=== PATIENT | female | born 1940 | race Caucasian/White ===

== ENCOUNTER 2019-06-09 11:27 | Emergency (ER) | payer MEDICARE, SELFPAY ==
--- NOTE | ~2019-06-09 | XR_ITS ---
EXAMINATION: XR foot RT min 3V DATE: 06/09/2019 12:08 INDICATION: Right foot pain and bruising TECHNIQUE: Dorsoplantar, lateral, and 2 oblique views of the right foot were obtained. COMPARISON: None. FINDINGS: There is dorsal soft tissue swelling the foot overlying the metatarsals. No fracture, dislo cation, or subluxation is identified. Bone alignment is normal. 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 A plantar calcaneal enthesophyte is noted. IMPRESSION: 1. Dorsal soft tissue swelling of the foot overlying the metatarsals without underlying osseous abnor mality. Reviewed, dictated and finalized at location A. UCTION COOK IMPRESSION: 1. Dorsal soft tissue swelling of the foot overlying the metatarsals without un derlying osseous abnormality.
[2019-06-09 11:33] VITALS: BP 163/73; PULSE 69; RESP 18; TEMP 36.4; O2SAT 100
--- NOTE | 2019-06-09 12:55 | ED.LOWEXIN ---
HPI - Extremity Injury (Lower) General Chief Complaint: Extremity Injury, Lower Stated Complaint: right foot injury Time Seen by Provider: 06/09/19 11:30 Source: patient Mode of arrival: ambulatory Limitations: no limitations History of Present Illness HPI Narrative: Patient presents with chief complaint of large swelling to the dorsal aspect of her right foot that she sustained after dropping a tube of butter onto it. Patient states the only blood thinner that she takes is a baby aspirin daily. Patient denies any loss of range of motion to her extremity. Patient denies prior fractures or injuries to the area. Patient denies any other injuries or concerns. Related Data Home Medications Medication Instructions Recorded Confirmed alendronate [Fosamax] 70 mg PO WEEKLY 06/09/19 aspirin 81 mg PO DAILY 06/09/19 atorvastatin 06/09/19 losartan 06/09/19 metoprolol tartrate 06/09/19 Allergies Allergy/AdvReac Type Severity Reaction Status Date / Time cyclobenzaprine Allergy Unknown Unknown Verified 06/09/19 11:43 Penicillins Allergy Unknown Unknown Verified 06/09/19 11:43 Review of Systems Review of Systems: Narrative: CONSTITUTIONAL: Denies fever, chills, or sweats. EYES: Denies visual changes, redness, or discharge. ENT: Denies rhinorrhea, congestion, sore throat, or otalgia. CARDIOVASCULAR: Denies chest pain, palpitations, or edema. RESPIRATORY: Denies cough or dyspnea. GASTROINTESTINAL: Denies abdominal pain, nausea, vomiting, or diarrhea. GENITOURINARY: Denies dysuria or hematuria. SKIN: Denies rash or itching. MUSCULOSKELETAL: Reports foot swelling denies back pain, joint pain, or myalgia. NEUROLOGIC: Denies headache, numbness, dizziness, or weakness. PSYCHIATRIC: Denies anxiety or depression. [facility] Past Medical History Medical History (Updated 06/09/19 @ 13:32 by Alli Orellana PA-C) Hypertension Osteoporosis Family History Family History (Updated 12/07/13 @ 07:13 by DOCTOR UNKNOWN) Mother Cerebrovascular accident Family history of heart disease in male family member before age 55 Father Family history of primary malignant neoplasm of liver Social History Social History Smoking status: Never smoker Alcohol intake: current Exam Narrative: Exam Narrative: GENERAL: Well-appearing, well-nourished, and in no acute distress. HEAD: Normocephalic, atraumatic. EYES: PERRLA and EOMI. ENT: Nares clear, no rhinorrhea or epistaxis. External ears nose and mouth without deformity. NECK: Supple. No adenopathy or masses. No carotid bruits or JVD CHEST: Clear to auscultation. No respiratory distress. No wheezes rales or rhonchi HEART: Regular rate and rhythm. No murmur heard. Normal peripheral pulses. EXTREMITIES: Normal range of motion. Large area of edema over dorsal aspect of right foot. Tender to palpation. SKIN: Warm, dry, no rash. NEURO: No focal deficits. Alert and oriented x3. PSYCH: Normal mood and affect. Course Vital Signs Vital signs: Vital Signs Temperature 97.5 F L 06/09/19 11:33 Pulse Rate 69 06/09/19 11:33 Respiratory Rate 18 06/09/19 11:33 Blood Pressure 163/73 H 06/09/19 11:33 Pulse Oximetry 100 06/09/19 11:33 Temperature 97.5 F L 06/09/19 11:33 Pulse Rate 69 06/09/19 11:33 Respiratory Rate 18 06/09/19 11:33 Blood Pressure 163/73 H 06/09/19 11:33 Pulse Oximetry 100 06/09/19 11:33 MDM - Extremity Injury (Lower) MDM Narrative Medical decision making narrative: Discussed with patient there are no signs of underlying fracture. Discussed treatment of contusion and follow-up with her primary care for reevaluation if discomfort persists and improvement is not present in 7 to 10 days. Patient is agreeable to Butch wrap. Instructed patient to elevate and apply cool compress. Patient verbalized understanding agreement denies any other questions or concerns. Patient states she is ready for discharge at this time. Differential Diagnosis Differ
== END 2019-06-09 13:05 | disposition home or self-care (01) ==
PROVIDERS: Emergency Provider Family Medicine
DX: S90.31XA Contusion of right foot, initial encounter (principal); I10 Essential (primary) hypertension; M81.0 Age-related osteoporosis without current pathological fracture; Z79.82 Long term (current) use of aspirin; W20.8XXA Other cause of strike by thrown, projected or falling object, initial encounter
CPT/HCPCS: 73630; 99283

== ENCOUNTER 2020-08-25 19:47 | Emergency (ER) | payer MEDICARE, SELFPAY ==
[2020-08-25 19:50] VITALS: BP 166/98; PULSE 71; RESP 18; TEMP 36.5; O2SAT 100
--- NOTE | 2020-08-25 21:00 | ED.SKABFB ---
HPI - Skin/Abscess/Foreign Bdy General Chief complaint: Skin/Abscess/Foreign Body Stated complaint: wound to face Time Seen by Provider: 08/25/20 20:46 Source: patient Mode of arrival: ambulatory Limitations: no limitations History of Present Illness HPI narrative: This is a 80 year old female that presents to the ER for left sided facial redness present x 3 days. Does report some drainage from the area. Denies fever. Related Data Home Medications Medication Instructions Recorded Confirmed alendronate [Fosamax] 70 mg PO WEEKLY 06/09/19 aspirin 81 mg PO DAILY 06/09/19 atorvastatin 06/09/19 losartan 06/09/19 metoprolol tartrate 06/09/19 Allergies Allergy/AdvReac Type Severity Reaction Status Date / Time cyclobenzaprine Allergy Unknown Unknown Verified 08/25/20 21:07 Penicillins Allergy Unknown Unknown Verified 08/25/20 21:07 Review of Systems Review of Systems: Narrative: CONSTITUTIONAL: Denies fever SKIN: Reports rash All systems reviewed & are unremarkable except as noted in HPI and below PMFSH Past Medical History Medical History (Updated 08/25/20 @ 22:10 by Leida Whitney PA-C) Hypertension Osteoporosis Family History Family History (Updated 12/07/13 @ 07:13 by DOCTOR UNKNOWN) Mother Cerebrovascular accident Family history of heart disease in male family member before age 55 Father Family history of primary malignant neoplasm of liver Social History Social History Smoking status: Never smoker Alcohol intake: current Exam Narrative: Exam Narrative: GENERAL: Well-appearing, well-nourished, and in no acute distress. HEAD: Normocephalic, atraumatic. Left side of the face temporal region with 5cm area of erythema and edema. No central fluctuance to suggest abscess. EYES: EOMI. EXTREMITIES: Normal range of motion. No edema. SKIN: Warm, dry, no rash. NEURO: No focal deficits. Alert and oriented x3. PSYCH: Normal mood and affect Course Vital Signs Vital signs: Vital Signs Temperature 97.7 F 08/25/20 19:50 Pulse Rate 71 08/25/20 19:50 Respiratory Rate 18 08/25/20 19:50 Blood Pressure 166/98 H 08/25/20 19:50 Pulse Oximetry 100 08/25/20 19:50 Temperature 97.7 F 08/25/20 19:50 Pulse Rate 71 08/25/20 19:50 Respiratory Rate 18 08/25/20 19:50 Blood Pressure 166/98 H 08/25/20 19:50 Pulse Oximetry 100 08/25/20 19:50 MDM - Skin/Abscess/Foreign Bdy MDM Narrative Medical decision making narrative: Patient presents to the ER for redness present to the left side of the face temporal region noted over the last 3 days. She is afebrile and nontoxic appearing. CBC is without leukocytosis. CRP is not elevated. Patient is noted to have area of cellulitis. No fluctuance to suggest an abscess. She will be started on oral antibiotics and was instructed to follow-up with her primary care doctor. She was given warnings to return to the ER Lab Data Attestation: I reviewed the patient's lab results. Result diagrams: 08/25/20 21:23 Labs: Lab Results 08/25/20 08/25/20 Range/Units 21:23 21:23 WBC 8.3 (4.5-10.0) K/mm3 RBC 4.40 (4.2-5.4) M/mm3 Hgb 13.2 (12.0-15.0) g/dL Hct 40.9 (37.0-47.0) % MCV 93.0 (80-100) fl MCH 30.0 (26-34) pg MCHC 32.3 (32-36) g/dl RDW 12.7 (11.5-14.5) % Plt Count 198 (150-375) k/mm3 MPV 9.8 (7.4-10.4) fl Immature Gran % (Auto) 0.2 (0-0.5) % Neut % (Auto) 66.2 (45.5-73.1) % Lymph % (Auto) 24.3 (18.3-44.2) % [place] % (Auto) 6.5 (2.6-8.5) % Eos % (Auto) 2.2 (0-4.4) % Baso % (Auto) 0.6 (0.2-1.2) % Lymph # (Auto) 2.02 (0.9-3.2) K/mm3 [place] # (Auto) 0.5 (0.1-0.6) K/mm3 Eos # (Auto) 0.2 (0-0.3) K/mm3 Baso # (Auto) 0.1 (0.0-0.1) K/mm3 Abs Immat Gran (auto) 0.02 (0.00-0.031) K/mm3 Absolute Neuts (auto) 5.5 (1.3-6.7) K/mm3 Absolute Nucleated RBC 0.0 (0.0-0.012) K/mm3 Nucleated RBC % 0.0 (0.0-0.2) % ESR Pending C-Reactive
[2020-08-25 21:32] LABS: Basophils Absolute Auto 0.1 K/mm3 (0.0-0.1); Basophils Percent Auto 0.6 % (0.2-1.2); Eosinophils Absolute Auto 0.2 K/mm3 (0-0.3); Eosinophils Percent Auto 2.2 % (0-4.4); Hematocrit 40.9 % (37.0-47.0); Hemoglobin 13.2 g/dL (12.0-15.0); Immature Granulocyte Absolute 0.02 K/mm3 (0.00-0.031); Immature Granulocyte Percent A 0.2 % (0-0.5); Lymphocytes Absolute Auto 2.02 K/mm3 (0.9-3.2); Lymphocytes Percent Auto 24.3 % (18.3-44.2); Mean Corpuscular HGB Conc 32.3 g/dl (32-36); Mean Platelet Volume 9.8 fl (7.4-10.4); Monocytes Absolute Auto 0.5 K/mm3 (0.1-0.6); Monocytes Percent Auto 6.5 % (2.6-8.5); Neutrophils Absolute Auto 5.5 K/mm3 (1.3-6.7); Neutrophils Percent Auto 66.2 % (45.5-73.1); Platelet Count Result 198 k/mm3 (150-375); Red Cell Distribution Width 12.7 % (11.5-14.5); White Blood Count 8.3 K/mm3 (4.5-10.0)
[2020-08-25 21:47] LABS: CRP 0.9 mg/dL (<1.0)
[2020-08-25 22:14] LABS: Erythrocyte Sedimentation Rate 24 mm/hr (0-20)
[2020-08-25] MEDS: CLINDAMYCIN HCL 150 MG CAP 300 MG PO (22:38)
== END 2020-08-25 22:40 | disposition home or self-care (01) ==
PROVIDERS: Physician Assistant; Emergency Provider Emergency Medicine; PCP Internal Medicine
DX: L03.211 Cellulitis of face (principal); I10 Essential (primary) hypertension; M81.0 Age-related osteoporosis without current pathological fracture; Z79.82 Long term (current) use of aspirin
CPT/HCPCS: 36415; 85025; 85652; 86140; 87070; 87147; 87186; 87205; 99283; A9270

== ENCOUNTER 2020-08-26 21:31 | Emergency (ER) | payer MEDICARE, SELFPAY ==
[2020-08-26 21:35] VITALS: BP 172/75; PULSE 73; RESP 16; TEMP 36
[2020-08-26 22:22] VITALS: TEMP 36.8
[2020-08-26 23:00] LABS: Basophils Percent Auto 0.4 % (0.2-1.2); Eosinophils Absolute Auto 0.2 K/mm3 (0-0.3); Eosinophils Percent Auto 1.5 % (0-4.4); Hematocrit 40.9 % (37.0-47.0); Hemoglobin 13.4 g/dL (12.0-15.0); Immature Granulocyte Absolute 0.03 K/mm3 (0.00-0.031); Immature Granulocyte Percent A 0.3 % (0-0.5); Lymphocytes Absolute Auto 1.99 K/mm3 (0.9-3.2); Mean Corpuscular HGB Conc 32.8 g/dl (32-36); Mean Corpuscular Hemoglobin 30.3 pg (26-34); Mean Corpuscular Volume 92.5 fl (80-100); Mean Platelet Volume 10.3 fl (7.4-10.4); Monocytes Absolute Auto 0.6 K/mm3 (0.1-0.6); Monocytes Percent Auto 5.8 % (2.6-8.5); Neutrophils Absolute Auto 7.6 K/mm3 (1.3-6.7); Platelet Count Result 209 k/mm3 (150-375); Red Blood Count 4.42 M/mm3 (4.2-5.4); Red Cell Distribution Width 12.7 % (11.5-14.5); White Blood Count 10.5 K/mm3 (4.5-10.0)
[2020-08-26 23:17] LABS: Lactic Acid Reflex 0.9 mmol/L (0.7-2.1)
[2020-08-26 23:27] LABS: Alanine Aminotransferase 20 U/L (4-35); Albumin Level 4.3 g/dL (3.5-5.1); Alkaline Phosphatase 82 U/L (38-126); Anion Gap 6 mmol/L (8-16); Aspartate Amino Transferase 27 U/L (14-36); Bilirubin,Total 0.6 mg/dL (0.2-1.3); Blood Urea Nitrogen 19 mg/dL (7-17); Calcium 9.4 mg/dL (8.4-10.2); Carbon Dioxide 25 mmol/L (22-30); Chloride 106 mmol/L (98-107); Estimated CRCL calculation 34 ml/min; Estimated Glomerular Filt Rate > 60; Glucose 93 mg/dL (65-105); Potassium 4.4 mmol/L (3.4-5.0); Sodium 137 mmol/L (137-145)
[2020-08-27 00:08] VITALS: BP 146/86; PULSE 74; RESP 18; O2SAT 99
--- NOTE | 2020-08-27 01:17 | ED.GENADULT ---
HPI - General Adult General Chief complaint: Fever Stated complaint: fever Time Seen by Provider: 08/26/20 22:16 History of Present Illness HPI narrative: Patient 80-year-old female presents emergency department chief complaint of cellulitis to left side of face. Patient was seen in the emergency department the last 24 hours started on clindamycin patient reports that she had noticed that her temperature was 99.2 at home and was concerned that she had a fever. The patient states that the area has not decreased in size yet and the patient states she was concerned that she was getting sicker. The patient denies chills denies body aches. The patient denies fluctuant mass to the area. Related Data Home Medications Medication Instructions Recorded Confirmed alendronate [Fosamax] 70 mg PO WEEKLY 06/09/19 aspirin 81 mg PO DAILY 06/09/19 atorvastatin 06/09/19 losartan 06/09/19 metoprolol tartrate 06/09/19 amlodipine 08/26/20 estradiol VAGINAL 08/26/20 08/26/20 Allergies Allergy/AdvReac Type Severity Reaction Status Date / Time cyclobenzaprine Allergy Unknown Unknown Verified 08/25/20 21:07 Penicillins Allergy Unknown Unknown Verified 08/25/20 21:07 Review of Systems Review of Systems: Narrative: A 10 system review of systems was completed on the patient and is negative except for what is stated in the HPI. Nursing and ancillary documentation was reviewed. [facility] Past Medical History Medical History Hypertension Osteoporosis Family History Family History Mother Cerebrovascular accident Family history of heart disease in male family member before age 55 Father Family history of primary malignant neoplasm of liver Social History Social History Smoking status: Never smoker Alcohol intake: current Exam Narrative: Exam Narrative: GENERAL: Well-appearing, well-nourished, and in no acute distress. HEAD: Normocephalic, atraumatic. EYES: PERRLA and EOMI. ENT: Nares clear, no rhinorrhea or epistaxis. Mucous membranes moist. NECK: Supple. CHEST: Clear to auscultation. No respiratory distress. HEART: Regular rate and rhythm. No murmur heard. Normal peripheral pulses. ABDOMEN: Soft, nontender, nondistended, normal active bowel sounds. EXTREMITIES: Normal range of motion. No edema. SKIN: Warm, dry, there is erythema present in the left face at the preauricular area on the left side. NEURO: No focal deficits. Alert and oriented x3. PSYCH: Normal mood and affect. Course Course Emergency Course: The patient is afebrile in the emergency department currently. White blood cell count is not significantly elevated the patient is only been on antibiotics for approximately 24 hours this time it was felt the patient could continue the antibiotics and follow-up in a short-term fashion with her primary care physician for close follow-up. Vital Signs Vital signs: Vital Signs Temperature 36.0 C L 08/26/20 21:35 Pulse Rate 73 08/26/20 21:35 Respiratory Rate 16 08/26/20 21:35 Blood Pressure 172/75 H 08/26/20 21:35 Temperature 36.8 C 08/26/20 22:22 Pulse Rate 74 08/27/20 00:08 Respiratory Rate 18 08/27/20 00:08 Blood Pressure 146/86 H 08/27/20 00:08 Pulse Oximetry 99 08/27/20 00:08 Medical Decision Making Vital Signs Vital Signs: Vital Signs Temperature 36.0 C L 08/26/20 21:35 Pulse Rate 73 08/26/20 21:35 Respiratory Rate 16 08/26/20 21:35 Blood Pressure 172/75 H 08/26/20 21:35 Temperature 36.8 C 08/26/20 22:22 Pulse Rate 74 08/27/20 00:08 Respiratory Rate 18 08/27/20 00:08 Blood Pressure 146/86 H 08/27/20 00:08 Pulse Oximetry 99 08/27/20 00:08 Lab Data Result diagrams: 08/26/20 22:46 08/26/20 22:46 Labs: Lab Results
[2020-08-27 01:54] VITALS: BP 144/82; PULSE 77; RESP 18; O2SAT 100
== END 2020-08-27 02:42 | disposition home or self-care (01) ==
PROVIDERS: Emergency Provider Emergency Medicine; PCP Internal Medicine
DX: L03.211 Cellulitis of face (principal); I10 Essential (primary) hypertension; M81.0 Age-related osteoporosis without current pathological fracture
CPT/HCPCS: 36415; 80053; 83605; 85025; 99283

== ENCOUNTER 2024-06-19 18:07 | Emergency (ER) | payer MEDICARE, SELFPAY ==
--- NOTE | ~2024-06-19 | XR_ITS ---
EXAM: XR hand RT min 3V DATE: 06/19/2024 18:43 HISTORY: Hit hand today. Large hematoma on dorsal surface. rt hand . COMPARISON: None available. FINDINGS: Decreased mineralization. No fracture or dislocation. No lytic or blastic lesion. Scattere d arthritic changes typical of osteoarthritis. No erosion or periosteal change. Marked dorsal soft ti ssue swelling, without subcutaneous gas or radiopaque foreign body. Chronic appearing decreased soft tissue over the tip of the third digit. IMPRESSION: No acute osseous finding in the right hand. Dorsal soft tissue swelling without subcutane ous gas or radiopaque foreign body. Reviewed, dictated and finalized at location K. IMPRESSION: No acute osseous finding in the right hand. Dorsal soft tissue swel ling without subcutaneous gas or radiopaque foreign body.
[2024-06-19 18:27] VITALS: BP 179/94; PULSE 63; RESP 18; TEMP 36.7; O2SAT 100
--- NOTE | 2024-06-19 18:30 | ED_ITS ---
HPI - Extremity Injury (Upper) General Chief Complaint: Extremity Injury, Upper Stated Complaint: Rt hand injury Source: patient Mode of arrival: ambulatory Limitations: no limitations History of Present Illness HPI narrative: 84-year-old female presented for complaint of right hand pain and bruise sustained after injury today. Patient states she struck the right hand on a file cabinet and the bruising caused swelling. Endorses some pain with range of motion. She denies deformity, numbness, tingling or weakness to the fingers. States she applied a wrap to the hand which reduce the swelling but then she re moved the wrap and the swelling returned. Related Data Home Medications ?Medication ?Instructions ?Recorded ?Confirmed ?Last Taken ?Type aspirin 81 mg chewable tablet 81 mg PO DAILY 06/09/19 06/19/24 Unknown History atorvastatin 06/09/19 Unknown History carvedilol 12.5 mg tablet 12.5 mg PO Q12H 06/19/24 06/19/24 Unknown History olmesartan 20 mg tablet 20 mg PO DAILY 06/19/24 06/19/24 Unknown History Allergies Allergy/AdvReac Type Severity Reaction Status Date / Time cyclobenzaprine Allergy Unknown Unknown Verified 06/19/24 18:33 Penicillins Allergy Unknown Unknown Verified 06/19/24 18:33 Review of Systems Review of Systems: Per HPI All systems reviewed & are unremarkable except as noted in HPI and below PMFSH Past Medical History Medical History Hypertension Osteoporosis Family History Family History Mother Cerebrovascular accident Family history of heart disease in male family member before age 55 Father Family history of primary malignant neoplasm of liver Social History Social History Smoking status: Never smoker Alcohol intake: current Comments At time of signature, I have reviewed and agree with nursing past medical, surgical, social and family history unless otherwise noted. Please see nursing chart for further information. There is no relevant family history pertinent to the presenting complaint Exam Narrative: GENERAL: Well-appearing CHEST: Speaks in full sentences. No respiratory distress. HEART: Regular rate and rhythm. Normal and equal peripheral pulses. EXTREMITIES: right dorsal hand with large raised hematoma, bruising extends to the 3rd proximal phalanx with swelling to the 3rd digit. hand has normal strength and sensation, normal range of motion with flexion/extension, endorses hand pain with flexion. Tender with palpation over the 3rd metacarpal. No open wounds, or obvious deformity; alignment normal, pulse palpable and equal bilaterally, skin warm, dry, pink. Capillary refill less than 3 seconds. SKIN: Warm, dry, no rash. NEURO: Alert and oriented x3. PSYCH: Normal mood and affect Course Course Emergency Course: Patient is aware of diagnosis, understands and agrees to treatment plan. Anticipatory guidance given. Patient agrees to follow-up as directed and is aw are of reasons to seek care at the emergency department. Portions of this record may have been created with voice recognition software Level of Care: Express Care Visit Vital Signs Vital signs: Vital Signs Temperature 98.0 F 06/19/24 18:27 Pulse Rate 63 06/19/24 18:27 Respiratory Rate 18 06/19/24 18:27 Blood Pressure 179/94 H 06/19/24 18:27 Pulse Oximetry 100 06/19/24 18:27 Oxygen Delivery Room Air 06/19/24 18:27 Temperature 98.0 F 06/19/24 18:27 Pulse Rate 63 06/19/24 18:27 Respiratory Rate 18 06/19/24 18:27 Blood Pressure 179/94 H 06/19/24 18:27 Pulse Oximetry 100 06/19/24 18:27 Oxygen Delivery Room Air 06/19/24 18:27 Reviewed MDM - Extremity Injury (Upper) MDM Narrative Medical decision making narrative: Discussed physical exam findings and x-ray. Butch wrap applied to the hand.. Advised supportive measures and signs/symptoms to go to the ER. Pt is appropriate for outpt treatment and f/u. Differential Diagnosis Differential diagnosis: Likely fracture of hand and other (Contusion, abrasion, sprain) Imaging Data Radiologist's impression: Patient: Kristen Jaramillo : 1940 MR#: [id number] Age: 84 Acct:[id number] Loc: [id number] ADM Date: 06/19/24Attending Dr: Ordering Physician: Nidia Todd APRN Date of Service: 06/19/24 Procedure(s): XR hand RT min 3V Accession Number(s): [id number] cc: Nidia Todd APRN; UNKNOWN,DOCTOR~ EXAM: XR hand RT min 3V DATE: 06/19/2024 18:43 HISTORY: Hit hand today. Large hematoma on dorsal surface. rt hand . COMPARISON: None available. FINDINGS: Decreased mineralization. No fracture or dislocation. No lytic or blastic lesion. Scattered arthritic changes typical of osteoarthritis. No erosion or periosteal change. Marked dorsal soft tissue swelling, without subcutaneous gas or radiopaque foreign body. Chronic appearing decreased soft tissue over the tip of the third digit. IMPRESSION: No acute osseous finding in the right hand. Dorsal soft tissue swelling without subcutaneous gas or radiopaque foreign body. Discharge Plan Discharge Clinical Impression: Hematoma of right hand Patient Disposition: Home, Self-Care Condition: Stable Instructions: Antibiotic Form, Hematoma (ED) Additional Instructions: Rest and elevate the right hand, activity as tolerated. Apply ice 10 minute intervals several times a day Keep it wrapped with BUTCH Tylenol for pain every 8 hours as needed Ok to hold Aspirin today. Follow up with your primary care provider, call tomorrow to schedule appointment Go to the ER for worsening symptoms or concerns Patient Language: Chinese Prescriptions: No Action carvedilol 12.5 mg tablet 12.5 mg PO Q12H olmesartan 20 mg tablet 20 mg PO DAILY aspirin 81 mg Tablet,Chewable 81 mg PO DAILY atorvastatin Follow-up/Referrals: UNKNOWN,DOCTOR [Primary Care Provider] - Time of Disposition: 19:51
== END 2024-06-19 19:55 | disposition home or self-care (01) ==
PROVIDERS: Emergency Provider Nurse Practitioner Family
DX: S60.221A Contusion of right hand, initial encounter (principal); W22.8XXA Striking against or struck by other objects, initial encounter; I10 Essential (primary) hypertension; E03.9 Hypothyroidism, unspecified; Z79.82 Long term (current) use of aspirin
CPT/HCPCS: 73130; 99213; G0463